=== PATIENT | female | born 1960 | race Caucasian/White ===

== ENCOUNTER 2020-04-14 04:18 | Day surgery (SDC) | payer OTHER ==
[2020-04-12 17:32] VITALS: BMI 22.4
[~2020-04-14 04:18] MED LIST: ceFAZolin 2 GRAM PREMIX BAG IVPB ONE
[2020-04-14] MEDS ORDERED: ROPIVACAINE HCL 0.5% 30ML VIAL ONE (09:34)
[2020-04-14] MEDS ORDERED: MIDAZOLAM HCL 2 MG/2 ML SINGLE DOSE VIAL ONE ×2 (09:35)
--- NOTE | 2020-04-14 09:58 | HP ---
Satellite [facility] - Chief Complaint Chief Complaint: left shoulder pain - Past Medical History Allergies/Adverse Reactions: Allergies Allergy/AdvReac Type Severity Reaction Status Date / Time erythromycin base Allergy "migraines" Verified 04/14/20 08:17 morphine Allergy "anaphylaxi Verified 04/14/20 08:17 s" - Current Medications Current Medications: Home Medications Medication Instructions Recorded Ascorbic Acid [Vitamin C] 500 mg PO DAILY 04/12/20 Oxycodone HCl/Acetaminophen 1 tab PO Q6H #20 tablet MDD 4 04/14/20 [Percocet 5-325 mg Tablet] Satellite Physical Exam - Physical Examination Vital Signs: Vital Signs Period Temp Pulse Resp BP Sys/Kaur Pulse Ox Last 24 Hr 98.4 F 68 18 121/76 100 General Appearance: Well Nourished, Well Developed, Alert & Oriented x3 ENT: Clear Lung: Normal air movement Extremities: Other (left shoulder- + ttp, decr rom, + neer, +whelan, nvi) Neurological: Intact, Alert, Oriented Satellite Impression/Plan - Impression/Plan Impression: left shoulder impingement Operative Procedure: left shoulder arthroscopy with SAD, possible RCR Date to be Performed: 04/14/20
[2020-04-14] MEDS ORDERED: ceFAZolin 2 GRAM PREMIX BAG IVPB ONE (10:15)
--- NOTE | 2020-04-14 10:30 | OP ---
Operative Note - Note: Operative Date: 04/14/20 ([facility]) Pre-Operative Diagnosis: right shoulder impingement Operation: right shoulder arthroscopy with SAD Post-Operative Diagnosis: Same as Pre-op Surgeon: Lavon Mercado Computer Graphics Illustrator: Sudeep Yeboah Anesthesia: Local Specimens Removed: shavings Estimated Blood Loss (mls): 0
[2020-04-14] MEDS ORDERED: ceFAZolin SODIUM 1 GM VIAL ONE (10:51)
[2020-04-14] MEDS ORDERED: DEXAMETHASONE SOD PHOSPHATE 4 MG/1 ML VIAL ONE (10:51)
[2020-04-14] MEDS ORDERED: LIDOCAINE HCL/PF 2% SDV 5ML VIAL ONE (10:51)
--- NOTE | 2020-04-14 12:04 | OP ---
DATE OF OPERATION: 04/14/2020 PREOPERATIVE DIAGNOSIS: Impingement syndrome, right shoulder. POSTOPERATIVE DIAGNOSIS: Impingement syndrome, right shoulder. PROCEDURE: Arthroscopy, right shoulder, with subacromial debridement and decompression and bursectomy. SURGICAL ATTENDING: Lavon Mercado MD AUTO TRANSMISSION SPECIALIST: REY Khan ANESTHESIA: Regional and general. CLOSURE: 4-0 nylon. COMPLICATIONS: None. CONDITION: To recovery room in stable condition. DESCRIPTION OF OPERATIVE PROCEDURE: Patient was taken to the operating room on April 14, 2020. Regional and general anesthesia was administered by the anesthesiologist. IV Kefzol was prophylactic prior to the case. Patient was placed in the beach chair position with all prominences well padded. Right shoulder was prepped and draped in the usual sterile fashion. First, the diagnostic arthroscopy of the glenohumeral joint was performed. Posterior portal was made 2 fingerbreadths below the acromion with a 15-blade followed by a blunt trocar. Circumferential exam of the glenohumeral joint revealed the following: intact glenohumeral head articular cartilage, intact labrum circumferentially, intact biceps and biceps anchor, intact subscapularis to its insertion, no loose bodies in the axillary pouch, intact supra and infraspinatus and teres minor. The trocar was removed from the shoulder. The posterior trocar was redirected in the subacromial space. An accessory lateral portal was made with 15-blade followed by blunt trocar. The large amount of thick bursal tissue was encountered on the subacromial space. This was debrided using the Arthrocare and the shaver. Coracoacromial ligament was identified and detached off the anterior acromion. It was visualized, dropped inferiorly, and it was further debrided. A subacromial spur was debrided. Undersurface of the acromion was debrided up to the appropriate level. Soft tissue encasing the humeral head was debrided using the shaver and the Arthrocare. hemostasis achieved again using the Arthrocare. Fluid was drained from the shoulder. Trocars were removed. The portals were closed using 4-0 nylon. A sterile Aquacel dressing followed by a sling was applied. Patient was awakened from anesthesia and transferred to recovery room in stable condition. No complications. Estimated blood loss negligible. Benito LINO/[id number]
[2020-04-14] MEDS ORDERED: oxyCODONE HCL 5 MG TABLET PO PRN ×3 (12:16→12:17)
[2020-04-14] MEDS ORDERED: ONDANSETRON 4 MG/2 ML VIAL IVPUSH PRN (12:16)
[2020-04-14] MEDS ORDERED: LACTATED RINGERS SOLUTION 1,000 ML IV SCH (12:30)
[2020-04-14] MEDS ORDERED: ACETAMINOPHEN 325 MG TABLET (FP) PO ONE (15:04)
[2020-04-14 15:33] VITALS: BP 124/84; PULSE 77; TEMP 97.4
--- NOTE | 2020-04-15 17:35 | PATH ---
Surgical Pathology Report Patient Name: ISABELLA LEON [facility]. Rec. #: [id number] /Age/Gender: 1960 (Age: 59) / F Account: [id number] Location: [facility] SURGICAL Taken: 04/14/2020 Received: 04/14/2020 Reported: 04/15/2020 Physicians: Lavon Mercado M.D. Specimen(s) Received RIGHT SHOULDER SHAVINGS Clinical History Impingement right shoulder Final Diagnosis SHOULDER SHAVINGS, RIGHT, ARTHROSCOPY, SUBACROMIAL DECOMPRESSION: FRAGMENTS OF BENIGN CARTILAGE, BONE, DENSE FIBROCONNECTIVE TISSUE, ADIPOSE TISSUE, AND SKELETAL MUSCLE. Electronically Signed Amie Luke M.D. Gross Description Received in formalin, labeled "right shoulder shavings," is a 3.0 x 2.0 x 0.3 cm. aggregate of nieves-yellow soft tissue fragments. A dental detail representative portion is submitted in one cassette. /04/14/2020 saudi/04/14/2020
== END 2020-04-14 15:30 | disposition home or self-care (01) ==
LOC: JASU-SURG 04:18
PROVIDERS: ATTEND Orthopaedic Surgery
PROC: 0RNJ4ZZ Release Right Shoulder Joint, Percutaneous Endoscopic Approach (ICD-10-PCS; principal; 2020-04-14 09:30)
DX: M75.41 Impingement syndrome of right shoulder (principal)
CPT/HCPCS: 88304-TC; 94760